=== PATIENT | male | born 1945 | race Caucasian/White ===

== ENCOUNTER 2023-06-03 12:14 | Observation (INO) | payer MEDICARE, SELFPAY ==
[2023-06-03 12:17] VITALS: BP 130/60; PULSE 90; RESP 20; TEMP 37; O2SAT 98; BMI 24.1
--- NOTE | 2023-06-03 12:25 | XR_ITS ---
The [address] [address] Patient Name: MARIPOSA KLINE MRN: [id number] date: 1945 Sex: M Assigned Patient Location: ER Current Patient Location: ER Accession/Order Number: [id number] Exam Date: 06/03/2023 12:41 Report Date: 06/03/2023 13:09 At the request of: DEANGELO ROLDAN Procedure: XR chest 1V EXAM: XR chest 1V HISTORY: . weak, tremorous . COMPARISON: None. TECHNIQUE: Single view of the chest FINDINGS: Heart and vascularity are unremarkable. There is hyperexpansion of lungs. Lungs are free of focal infiltrates. Spondylosis of the spine is noted. XR/XR chest 1V IMPRESSION: No acute heart or lung disease identified. Electronically authenticated by: LALITA ARAMBULA Date: 06/03/2023 13:09
--- NOTE | 2023-06-03 12:26 | ED_ITS ---
HPI - General Adult General Chief complaint: Urogenital-Male Stated complaint: HIGH BLOOD PRESSURE Time Seen by Provider: 06/03/23 12:19 Mode of arrival: ambulance Limitations: no limitations History of Present Illness HPI narrative: [age] old male presents for feeling weak and shaky which started today. He states he was sitting on his couch and his checked his blood pressure was high and then he took his blood pressure medicine and it came down but he's been shaky today. He may have had some burning on urination recently as well but that is not clear. No complaint of chest pain cough or vomiting. No abdominal pain. He doesn't complain of back pain. Related Data Home Medications Medication Instructions Recorded Confirmed albuterol sulfate 90 mcg/actuation 2 puff inhalation Q4H PRN 06/03/23 06/03/23 aerosol inhaler bronchospasm amlodipine 5 mg tablet 5 mg PO DAILY 06/03/23 06/03/23 lisinopril 20 1 tab PO DAILY 06/03/23 06/03/23 mg-hydrochlorothiazide 25 mg tablet meloxicam 15 mg tablet 15 mg PO DAILY 06/03/23 06/03/23 potassium chloride 20 mEq 20 meq PO DAILY 06/03/23 06/03/23 tablet,extended release(part/cryst) Allergies Allergy/AdvReac Type Severity Reaction Status Date / Time No Known Drug Allergies Allergy Verified 06/03/23 12:17 Review of Systems ROS Narrative A ten point review of systems is negative except as noted above. PFSH PFSH Social History Smoking status: Current every day smoker Exam Narrative Exam Narrative: Nurses note and vital signs reviewed and patient is not hypoxic. General: The patient appears in no apparent distress from a respiratory standpoint. Skin: Warm, dry, no pallor noted. There is no rash noted. Head: Normocephalic, atraumatic Eye: Normal conjunctiva, no drainage Ears, Nose, Mouth, and Throat: oral mucosa is somewhat dry. Nares patent. Cardiovascular: Regular Rate and Rhythm Respiratory: Patient is in no distress, no accessory muscle use, lungs are clear to auscultation, no wheezing, rales or rhonchi Back: non-tender, no CVA tenderness bilaterally to percussion. GI: soft and nontender Musculoskeletal: The patient has no evidence of calf tenderness, no pitting edema, symmetrical pulses noted bilaterally Neurological: A&O, normal speech, he is quite tremorous Psychiatric: Cooperative Constitutional Vital Signs, click to edit/add: Last Vital Signs Temp 98.6 F 06/03/23 12:17 Pulse 97 H 06/03/23 14:10 Resp 20 06/03/23 14:10 BP 123/74 06/03/23 14:10 Pulse Ox 94 L 06/03/23 14:10 O2 Del Method Room Air 06/03/23 12:17 Course Vital Signs Vital signs: Vital Signs Temperature 98.6 F 06/03/23 12:17 Pulse Rate 90 06/03/23 12:17 Respiratory Rate 20 06/03/23 12:17 Blood Pressure 130/60 06/03/23 12:17 Pulse Oximetry 98 06/03/23 12:17 Oxygen Delivery Method Room Air 06/03/23 12:17 Temperature 98.6 F 06/03/23 12:17 Pulse Rate 97 H 06/03/23 14:10 Respiratory Rate 20 06/03/23 14:10 Blood Pressure 123/74 06/03/23 14:10 Pulse Oximetry 94 L 06/03/23 14:10 Oxygen Delivery Method Room Air 06/03/23 12:17 Medical Decision Making MDM Narrative Medical decision making narrative: his workup is negative except for 5-10 red blood cells and 5-10 white blood cells per high-power field. Cultures are obtained and he was given IV Rocephin and he is being admitted. He is feeling somewhat improved with IV fluids. Treatment diagnosis and disposition were discussed with patient and family. Differential Diagnosis Differential Diagnosis: urinary tract infection, pneumonia, Covid, influenza Lab Data Lab results reviewed: Yes I reviewed the patient's lab results Labs: Lab Results 06/03/23 06/03/23 Range/Units 12:40 13:03 WBC 4.0 (4.0-11.0) 10^3/uL RBC 5.01 (4.70-6.10) 10^6/uL Hgb 14.3 (14.0-18.0) g/dL Hct 44.5 (42.0-54.0) % MCV 88.8 (80.0-94.0) fL MCH 28.5 (25.9-34.0) pg MCHC 32.1 (29.9-35.2) g/dL RDW 13.9 (11.0-15.0) % Plt Count 151 (150-450) 10^3/uL MPV 11.5 (9.5-13.5) fL Seg Neuts % (Manual) 80.0 Band Neutrophils % 10.0 H (0-5) % Lymphocytes % (Manual) 4.0 L (20.5-60.0) % Atypical Lymphs % (Man) 4.0 % Monocytes % (Manual) 2.0 (1.7-12.0) % Eosinophils % (Manual) 0.0 L (0.9-7.0) % Basophils % (Manual) 0.0 L (0.2-2.0) % Neutrophils # (Manual) 3.20 (1.4-6.5) 10^3/uL Band Neutrophils # 0.4 H (0.0-0.3) 10^3/uL Lymphocytes # (Manual) 0.16 L (1.20-3.80) 10^3/uL Abs Atypical Lymphs Man 0.16 Monocytes # (Manual) 0.08 L (0.30-0.80) 10^3/uL Eosinophils # (Manual) 0.00 (0.00-0.70) 10^3/uL Basophils # (Manual) 0.00 (0.00-0.10) 10^3/uL Sodium 139 (136-145) mmol/L Potassium 3.5 (3.5-5.1) mmol/L Chloride 102 (98-107) mmol/L Carbon Dioxide 29.0 (21.0-32.0) mmol/L Anion Gap 11.5 BUN 21.0 H (7.0-18.0) mg/dL Creatinine 0.76 (0.70-1.30) mg/dL Est GFR ( Amer) >60 (>=60) Est GFR (Non-Af Amer) >60 (>=60) BUN/Creatinine Ratio 27.6 Glucose 80 (74-106) mg/dL Calcium 8.7 (8.5-10.1) mg/dL Urine Color Dk. yellow (YELLOW) Urine Clarity Slightly cloudy A (CLEAR) Urine pH 6.0 (5.0-9.0) Ur Specific [place] 1.025 (1.005-1.025) Urine Protein 100 A (NEG/TRACE) mg/dL Urine Glucose (UA) Negative (NEGATIVE) mg/dL Urine Ketones Negative (NEGATIVE) mg/dL Urine Occult Blood Moderate A (NEGATIVE) Urine Nitrite Positive A (NEGATIVE) Urine Bilirubin Negative (NEGATIVE) Urine Urobilinogen 1.0 (0.2-1.0) EU/dL Ur Leukocyte Esterase Negative (NEGATIVE) Urine RBC 5-10 A (0-2) #/HPF Urine WBC 5-10 A (NONE SEEN) #/HPF Ur Squamous Epith Cells None seen (NONE/RARE) #/LPF Urine Crystals None seen (None Seen) #/HPF Urine Bacteria Moderate A (NONE SEEN) #/HPF Urine Casts None seen (NONE SEEN) #/LPF Urine Mucus None seen (NONE SEEN) SARS-CoV-2 (PCR) Negative (NEGATIVE) Influenza Type A Ag Negative Influenza Type B Ag Negative Imaging Data Chest x-ray: Radiologist's impression: chest x-ray per radiologist shows no acute findings Discharge Plan Discharge Chief Complaint: Urogenital-Male Time of Disposition Decision: 14:17 Prescriptions / Home Meds: No Action albuterol sulfate 90 mcg/actuation HFA aerosol inhaler 2 puff INHALATION Q4H PRN (Reason: bronchospasm) amlodipine 5 mg tablet 5 mg PO DAILY lisinopril-hydrochlorothiazide 20-25 mg tablet 1 tab PO DAILY meloxicam 15 mg tablet 15 mg PO DAILY potassium chloride 20 mEq tablet,ER particles/crystals 20 meq PO DAILY
--- NOTE | 2023-06-03 12:26 | PC.NURSE ---
Patient reports burning with urination, denies any difficulty urinating.
[2023-06-03] MEDS: 0.9 % SODIUM CHLORIDE 1,000 ML 125 ML IV (12:52)
[2023-06-03 12:54] LABS: Hematocrit 44.5 % (42.0-54.0); Hemoglobin 14.3 g/dL (14.0-18.0); Mean Corpuscular HGB Conc 32.1 g/dL (29.9-35.2); Mean Corpuscular Hemoglobin 28.5 pg (25.9-34.0); Mean Corpuscular Volume 88.8 fL (80.0-94.0); Mean Platelet Volume 11.5 fL (9.5-13.5); Platelet Count 151 10^3/uL (150-450); Red Blood Count 5.01 10^6/uL (4.70-6.10); Red Cell Distribution Width 13.9 % (11.0-15.0)
[2023-06-03 12:59] VITALS: BP 153/68; PULSE 92; RESP 18; O2SAT 95
[2023-06-03 13:02] LABS: Anion Gap 11.5; BUN Creatinine Ratio 27.6; Calcium 8.7 mg/dL (8.5-10.1); Chloride 102 mmol/L (98-107); Estimated GFR (African America >60 (>=60); Estimated GFR (Non-African Ame >60 (>=60); Glucose 80 mg/dL (74-106); Potassium 3.5 mmol/L (3.5-5.1); Sodium 139 mmol/L (136-145)
[2023-06-03 13:05] LABS: Atypical Lymphocytes Abs Man 0.16; Band Neutrophils Absolute 0.4 10^3/uL (0.0-0.3); Lymphocytes Absolute Manual 0.16 10^3/uL (1.20-3.80); Monocytes Absolute Manual 0.08 10^3/uL (0.30-0.80)
[2023-06-03 13:13] LABS: Influenza Virus A Antigen Negative; Influenza Virus B Antigen Negative; Internal Control Within Normal Limits; SARS-CoV-2 Ag NEGATIVE (NEGATIVE)
[2023-06-03 13:14] LABS: Bilirubin Urine NEGATIVE (NEGATIVE); Blood Urine MODERATE (NEGATIVE); Color Urine DK. YELLOW (YELLOW); Glucose Urine UA NEGATIVE (NEGATIVE); Ketones Urine NEGATIVE (NEGATIVE); Leukocyte Esterase Urine NEGATIVE (NEGATIVE); Nitrite Urine POSITIVE (NEGATIVE); Protein Urine 100 mg/dL (NEG/TRACE); Specific Gravity Urine 1.025 (1.005-1.025)
[2023-06-03 13:15] LABS: Clarity Urine SLIGHTLY CLOUDY (CLEAR)
[2023-06-03 13:17] LABS: Bacteria Urine MODERATE #/HPF (NONE SEEN); Cast Seen? NONE SEEN #/LPF (NONE SEEN); Crystals Seen? None Seen #/HPF (None Seen); Mucus Urine NONE SEEN (NONE SEEN); Squamous Epithelial Cell Urine NONE SEEN #/LPF (NONE/RARE)
[2023-06-03] MEDS: CEFTRIAXONE 1,000 MG in 0.9 % SODIUM CHLORIDE 50 ML 100 MG IV (14:05)
[2023-06-03 14:10] VITALS: BP 123/74; PULSE 97; RESP 20; O2SAT 94
[2023-06-03 15:05] VITALS: BP 129/76; PULSE 93; RESP 18; TEMP 37.2; O2SAT 92
[2023-06-03 15:14] VITALS: BMI 25.9
[2023-06-03] MEDS: LACTATED RINGER'S SOLUTION 1,000 ML 125 ML IV (16:13)
[2023-06-03] MEDS: ENOXAPARIN SODIUM 40 MG/0.4 ML SYRINGE SUBQ (16:13)
[2023-06-03 19:57] VITALS: O2SAT 93
[2023-06-03 20:17] VITALS: BP 106/62; PULSE 72; RESP 18; TEMP 36.5; O2SAT 90
[2023-06-04 00:27] VITALS: PULSE 79; RESP 18; O2SAT 92
[2023-06-04] MEDS: LACTATED RINGER'S SOLUTION 1,000 ML 125 ML IV ×2 (00:27→08:31)
[2023-06-04] MEDS: ALBUTEROL SULFATE 2.5 MG/3 ML VIAL NEB IH (00:27)
[2023-06-04 04:10] VITALS: O2SAT 96
[2023-06-04 04:17] VITALS: BP 102/57; PULSE 76; RESP 18; TEMP 36.7; O2SAT 96
[2023-06-04 05:37] LABS: Basophils Percent Auto 0.3 % (0.2-2.0); Eosinophils Absolute Auto 0.1 10^3/uL (0.0-0.7); Eosinophils Percent Auto 0.9 % (0.9-7.0); Hematocrit 36.1 % (42.0-54.0); Hemoglobin 11.7 g/dL (14.0-18.0); Immature Granulocytes Abs Auto 0.05 10^3/uL (0.00-0.03); Immature Granulocytes Pct Auto 0.4 % (0.0-0.5); Lymphocytes Absolute Auto 1.2 10^3/uL (1.2-3.8); Mean Corpuscular HGB Conc 32.4 g/dL (29.9-35.2); Mean Corpuscular Hemoglobin 28.9 pg (25.9-34.0); Mean Corpuscular Volume 89.1 fL (80.0-94.0); Mean Platelet Volume 12.3 fL (9.5-13.5); Monocytes Absolute Auto 0.9 10^3/uL (0.3-0.8); Monocytes Percent Auto 7.3 % (1.7-12.0); Neutrophils Absolute Auto 10.5 10^3/uL (1.4-6.5); Neutrophils Percent Auto 82.1 % (43.0-75.0); Platelet Count 118 10^3/uL (150-450); Red Blood Count 4.05 10^6/uL (4.70-6.10); Red Cell Distribution Width 14.1 % (11.0-15.0); White Blood Count 12.8 10^3/uL (4.0-11.0)
[2023-06-04 05:56] LABS: Alanine Aminotransferase 41 U/L (16-63); Albumin Globulin Ratio 0.9; Albumin Level 2.4 g/dL (3.4-5.0); Alkaline Phosphatase 58 U/L (46-116); Anion Gap 7.5; Aspartate Amino Transferase 31 U/L (15-37); Bilirubin Total 0.9 mg/dL (0.2-1.0); Calcium 8.1 mg/dL (8.5-10.1); Carbon Dioxide 29.4 mmol/L (21.0-32.0); Chloride 101 mmol/L (98-107); Estimated GFR (African America >60 (>=60); Estimated GFR (Non-African Ame >60 (>=60); Globulin 2.6 g/dL; Glucose 96 mg/dL (74-106); Sodium 135 mmol/L (136-145)
[2023-06-04 06:20] LABS: Potassium 2.9 mmol/L (3.5-5.1)
[2023-06-04 07:00] VITALS: BP 105/65; PULSE 73; RESP 16; TEMP 36.6; O2SAT 90
[2023-06-04 08:00] VITALS: RESP 16
[2023-06-04 08:31] VITALS: BP 105/65
[2023-06-04] MEDS: AMLODIPINE BESYLATE 5 MG TABLET PO (08:31)
[2023-06-04] MEDS: POTASSIUM CHLORIDE 10 MEQ ER TABLET 40 MEQ PO (08:32)
[2023-06-04] MEDS: POTASSIUM CHLORIDE 40 MEQ in 0.9 % SODIUM CHLORIDE 250 ML 67.5 MEQ IV (08:35)
--- NOTE | 2023-06-04 11:52 | PM.HP ---
H&P: HPI History of Present Illness Chief complaint: HIGH BLOOD PRESSURE UTI Narrative: HPI and Hospital Course 78 y o m was in his usual state of health when he started to experience fever, chills, weakness last evening. Alongwith these symptoms, he also noted dysuria and dark colored urine. His work up in ED revealed Acute UTI and he was admitted for overnight observation for it. He was treated with IVF, IV rocephin and feels well today and has no complaints to offer. Stable for d/c on oral cefdinir. He was also noted to have hypokalemia. He takes combination of HCTZ/lisinopril at home for HTN. His HCTZ was discontinued. Patient asked to follow up with PCP for HTN and see if he really needs HCTZ. For improved BP control, there is room for increasing the dose of amlodipine and Lisinopril. Admission Diagnosis UTI HTN Hypokalemia Discharge Diagnosis as above Discharge status stable. Review of Systems ROS Status of ROS 10 or more systems reviewed and unremarkable except as noted in history and below [facility] Medical History (Updated 06/04/23 @ 11:57 by Shaikh Nola MD) HTN (hypertension) ?I10 - Essential (primary) hypertension (ICD-10) Social History (Updated 06/04/23 @ 11:57 by Shaikh Nola MD) Within the past year, how often did you have a drink containing alcohol: never Within the past year, how many standard drinks containing alcohol did you have on a typical day: 1 or 2 Within the past year, how often did you have six or more drinks on one occasion: never Total score: 0 Score interpretation: A score less than 4 is consistent with normal alcohol consumption. Smoking status: Current every day smoker Non-prescribed substance use: denies use Highest level of school completed/degree received: GED or equivalent Meds Home Medications and Allergies Home Medications Medication Instructions Recorded Confirmed Type albuterol sulfate 90 mcg/actuation 2 puff inhalation Q4H PRN 06/03/23 06/03/23 History aerosol inhaler bronchospasm amlodipine 5 mg tablet 5 mg PO DAILY 06/03/23 06/03/23 History meloxicam 15 mg tablet 15 mg PO DAILY 06/03/23 06/03/23 History potassium chloride 20 mEq 20 meq PO DAILY 06/03/23 06/03/23 History tablet,extended release(part/cryst) cefdinir 300 mg capsule 300 mg PO BID 5 days #10 caps 06/04/23 Rx lisinopril 20 mg tablet 20 mg PO DAILY #30 tabs 06/04/23 Rx Allergies Allergy/AdvReac Type Severity Reaction Status Date / Time No Known Drug Allergies Allergy Verified 06/03/23 15:16 Exam Constitutional Vital Signs, click to edit/add: Last Vital Signs Temp 98 F 06/04/23 07:00 Pulse 73 06/04/23 07:00 Resp 16 06/04/23 08:00 BP 105/65 06/04/23 08:31 Pulse Ox 90 L 06/04/23 07:00 O2 Del Method Room Air 06/04/23 07:00 Documenting provider has reviewed patient's vital signs: yes Common normals: no apparent distress and oriented x3 General appearance: cooperative HENMT Common normals: normocephalic and head/scalp atraumatic Head and scalp: normocephalic and atraumatic Respiratory Common normals: normal respiratory effort and clear to auscultation bilaterally Effort & inspection: able to speak in complete sentences Auscultation: clear to auscultation bilaterally Cardio Common normals: regular rate, S1 normal heart sound and S2 normal heart sound Rate: regular rate Heart sounds: S1 normal and S2 normal GI Common normals: Normal to inspection, nondistended, normoactive bowel sounds present, soft to palpation, non-tender and no hepatosplenomegaly Palpation: soft and no hepatosplenomegaly Extremity Common normals: no clubbing, cyanosis or edema Neuro Common normals: oriented x3, moves all extremities and no focal motor deficits Psych Common normals: mental status grossly normal, denies hallucinations, denies homicidal ideation and denies suicidal ideation Results Labs Labs: Short CBC 06/03/23 06/04/23 Range/Units 12:40 05:00 WBC 4.0 12.8 H (4.0-11.0) 10^3/uL Hgb 14.3 11.7 L (14.0-18.0) g/dL Hct 44.5 36.1 L (42.0-54.0) % Plt Count 151 118 L (150-450) 10^3/uL BMP 12/24/23 12/25/23 12:40 05:00 Sodium 139 135 L Potassium 3.5 2.9 L* Chloride 102 101 Carbon Dioxide 29.0 29.4 BUN 21.0 H 26.0 H Creatinine 0.76 0.84 Glucose 80 96 Calcium 8.7 8.1 L Liver Function 06/04/23 Range/Units 05:00 Total Bilirubin 0.9 (0.2-1.0) mg/dL AST 31 (15-37) U/L ALT 41 (16-63) U/L Alkaline Phosphatase 58 (46-116) U/L Albumin 2.4 L (3.4-5.0) g/dL Urine 06/03/23 Range/Units 13:03 Urine Color Dk. yellow (YELLOW) Urine Clarity Slightly cloudy A (CLEAR) Urine pH 6.0 (5.0-9.0) Ur Specific [place] 1.025 (1.005-1.025) Urine Protein 100 A (NEG/TRACE) mg/dL Urine Glucose (UA) Negative (NEGATIVE) mg/dL Assessment and Plan Assessment and Plan (1) Urinary tract infection: Assessment and Plan: Stable for d/c on oral cefdinir. Treated with Rocephin in the hospital F/u urine culture results Qualifiers: Hematuria presence: without hematuria Urinary tract infection type: acute cystitis Qualified Code(s): N30.00 - Acute cystitis without hematuria (2) HTN (hypertension): Assessment and Plan: D/c HCTZ for ypokalemia. C/w lisinopril, amlodipine. Monitor BP and defer further care to PCP who can adjust his meds based on home BP readings. Qualifiers: Hypertension type: primary hypertension Qualified Code(s): I10 - Essential (primary) hypertension (3) Hypokalemia: Assessment and Plan: On PO potassium as outpatient. Needed IV, PO potassium in the hospital. D/c HCTZ.
[2023-06-05 12:03] LABS: SARS-CoV-2 NAA NOT DETECTED (NOT DETECTE)
== END 2023-06-04 13:40 | disposition home or self-care (01) ==
LOC: ER 14:20 → MS 15:00
PROVIDERS: Admitting Provider Internal Medicine; Emergency Provider Emergency Medicine; PCP Internal Medicine; Visit Provider Internal Medicine
DX: N39.0 Urinary tract infection, site not specified (principal); E87.6 Hypokalemia; I10 Essential (primary) hypertension; F17.210 Nicotine dependence, cigarettes, uncomplicated; Z79.899 Other long term (current) drug therapy; Z20.822 Contact with and (suspected) exposure to COVID-19; B96.89 Other specified bacterial agents as the cause of diseases classified elsewhere
CPT/HCPCS: 36415; 71045; 80048; 80053; 81001; 85007; 85025; 85027; 87040; 87086; 87150; 87186; 87635; 87804; 87811; 94640; 94761; 96365; 96366; 96367; 96372; 99285; G0378; J3480